=== PATIENT | female | born 1985 | race Caucasian/White ===

== ENCOUNTER 2016-03-10 18:16 | Emergency (ER) | payer MEDICAID ==
[2016-03-10] MEDS ORDERED: KETOROLAC 60 MG/2 ML VIAL IM STA (20:21)
[2016-03-10] MEDS ORDERED: CYCLOBENZAPRINE 10 MG TABLET PO STA (20:23)
[2016-03-10] MEDS ORDERED: HYDROcod/ACETAM 5/325 MG TABLET PO STA (20:23)
[2016-03-10] MEDS ORDERED: DEXAMETHASONE 10 MG/ML VIAL PO STA (20:24)
[2016-03-10] MEDS ORDERED: CYCLOBENZAPRINE 10 MG TABLET PO ONE (20:35)
[2016-03-10] MEDS ORDERED: CHERRY SYRUP 10 ML UDC PO ONE ×2 (20:35→20:36)
[2016-03-10] MEDS ORDERED: KETOROLAC 60 MG/2 ML VIAL ONE (20:35)
[2016-03-10] MEDS ORDERED: HYDROcod/ACETAM 5/325 MG TABLET ONE (20:35)
[2016-03-10] MEDS ORDERED: DEXAMETHASONE 10 MG/ML VIAL ONE (20:35)
== END 2016-03-10 20:55 | disposition home or self-care (01) ==
DX: M54.5 Low back pain (principal); G89.29 Other chronic pain; M79.7 Fibromyalgia; F17.200 Nicotine dependence, unspecified, uncomplicated
CPT/HCPCS: 96372; 99283; A9270

== ENCOUNTER 2016-03-28 20:15 | Outpatient (CLI) | payer MEDICAID | END 2016-03-28 20:16 | disposition home or self-care (01) | DX: F31.9 Bipolar disorder, unspecified (principal) ==

== ENCOUNTER 2016-04-02 11:36 | Emergency (ER) | payer MEDICAID ==
[2016-04-02] MEDS ORDERED: IBUPROFEN 800 MG TABLET PO STA (12:33)
[2016-04-02] MEDS ORDERED: HYDROcod/ACETAM 5/325 MG TABLET PO STA (12:33)
[2016-04-02] MEDS ORDERED: IBUPROFEN 800 MG TABLET PO ONE ×2 (12:38→12:39)
[2016-04-02] MEDS ORDERED: HYDROcod/ACETAM 5/325 MG TABLET ONE (12:38)
== END 2016-04-02 13:59 | disposition home or self-care (01) ==
DX: S82.832A Other fracture of upper and lower end of left fibula, initial encounter for closed fracture (principal); X50.1XXA Overexertion from prolonged static or awkward postures, initial encounter; F17.200 Nicotine dependence, unspecified, uncomplicated
CPT/HCPCS: 73610; 99283; A9270

== ENCOUNTER 2016-04-30 17:07 | Outpatient (CLI) | payer MEDICAID | END 2016-04-30 17:08 | disposition home or self-care (01) | DX: S82.65XD Nondisplaced fracture of lateral malleolus of left fibula, subsequent encounter for closed fracture with routine healing (principal) ==

== ENCOUNTER 2016-05-10 08:12 | Day surgery (SDC) | payer MEDICAID ==
[~2016-05-10 08:12] MED LIST: ceFAZolin 2 GM/50 ML 50 ML IV ONE
[2016-05-10] MEDS ORDERED: LACTATED RINGERS 1,000 ML IV ONE ×2 (08:54→10:45)
[2016-05-10] MEDS ORDERED: BUPIVACAINE 0.25%-EPI 1:200000 PF 30 ML VIAL SUBQ ONE ×2 (09:59)
[2016-05-10] MEDS ORDERED: MIDAZOLAM 2 MG/2 ML VIAL IVP ONE (10:00)
[2016-05-10] MEDS ORDERED: ACETAMINOPHEN 1,000 MG/100 ML VIAL IV ONE (10:00)
[2016-05-10] MEDS ORDERED: LIDOCAINE-PF 2% 10 ML AMP SUBQ ONE (10:00)
[2016-05-10] MEDS ORDERED: PROPOFOL 200 MG/20 ML VIAL IVP ONE (10:00)
[2016-05-10] MEDS ORDERED: ONDANSETRON 4 MG/2 ML VIAL IVP ONE (10:00)
[2016-05-10] MEDS ORDERED: DEXAMETHASONE 4 MG/ML VIAL IVP ONE (10:00)
[2016-05-10] MEDS ORDERED: fentaNYL 100 MCG/2 ML VIAL IVP ONE (10:00)
[2016-05-10] MEDS: fentaNYL 100 MCG/2 ML VIAL ONE ×2 (11:04→11:18)
[2016-05-10] MEDS ORDERED: MEPERIDINE 50 MG/ML SYRINGE ONE (11:07)
[2016-05-10] MEDS ORDERED: MIDAZOLAM 2 MG/2 ML VIAL ONE (11:07)
[2016-05-10] MEDS: HYDROmorphone 1 MG/ML SYRINGE ONE ×3 (11:23→11:39)
[2016-05-10] MEDS ORDERED: oxyCOD/ACETAMIN 5 MG/325 MG TABLET PO ONE (12:07)
== END 2016-05-10 08:13 | disposition home or self-care (01) ==
PROC: 0QSK04Z Reposition Left Fibula with Internal Fixation Device, Open Approach (ICD-10-PCS; principal; 2016-05-10 09:30)
DX: S82.62XA Displaced fracture of lateral malleolus of left fibula, initial encounter for closed fracture (principal); F17.210 Nicotine dependence, cigarettes, uncomplicated; E66.9 Obesity, unspecified; Z68.38 Body mass index [BMI] 38.0-38.9, adult
CPT/HCPCS: 27726; 97161; A9270; C1713; J0131; J0690; J1170; J7120